=== PATIENT | male | born 1980 | race Caucasian/White ===

== ENCOUNTER 2019-10-30 20:56 | Emergency (ER) | payer OTHER ==
[~2019-10-30] VITALS: Ht 180.3 cm; Wt 86.2 kg
== END 2019-10-31 00:57 | disposition home or self-care (01) ==
LOC: ER 20:56
DX: S43.491A Other sprain of right shoulder joint, initial encounter (principal); M25.511 Pain in right shoulder; X50.0XXA Overexertion from strenuous movement or load, initial encounter; Y93.89 Activity, other specified; Y92.89 Other specified places as the place of occurrence of the external cause; Y99.8 Other external cause status

== ENCOUNTER 2022-11-08 01:10 | Emergency (ER) | payer OTHER ==
[~2022-11-08] VITALS: Ht 180.3 cm; Wt 81.6 kg
== END 2022-11-08 02:39 | disposition home or self-care (01) ==
LOC: ER 01:10
DX: S01.511A Laceration without foreign body of lip, initial encounter (principal); W19.XXXA Unspecified fall, initial encounter; Y93.E1 Activity, personal bathing and showering; Y92.091 Bathroom in other non-institutional residence as the place of occurrence of the external cause; Y99.9 Unspecified external cause status

== ENCOUNTER → 2022-11-14 | Emergency (ER) | payer OTHER | END | disposition home or self-care (01) | LOC: ER 09:25 | DX: Z48.02 Encounter for removal of sutures (principal) ==

== ENCOUNTER 2022-11-17 10:45 | Emergency (ER) | payer OTHER ==
[~2022-11-17] VITALS: Ht 167.6 cm; Wt 76.7 kg
== END 2022-11-17 12:16 | disposition home or self-care (01) ==
LOC: ER 10:45
DX: Z48.02 Encounter for removal of sutures (principal)